=== PATIENT | female | born 1955 | race Caucasian/White ===

== ENCOUNTER 2019-08-05 06:11 | Inpatient (IN) | payer MEDICARE ==
[2019-07-27 11:22] LABS: BASOPHILS % (AUTO) 0.3 % (0-1); EOSINOPHILS # (AUTO) 0.4 X10'3 (0-0.9); EOSINOPHILS % (AUTO) 4.3 % (0-6); LYMPHOCYTES # (AUTO) 1.4 X10'3 (1.1-4.8); MEAN CORPUSCULAR HEMOGLOBIN 29.1 PG (27.0-31.0); MEAN CORPUSCULAR HGB CONC 32.7 g/dL (33.0-36.5); MEAN CORPUSCULAR VOLUME 89.1 FL (78-98); MEAN PLATELET VOLUME 7.8 FL (7.4-10.4); MONOCYTES # (AUTO) 0.9 X10'3 (0-0.9); MONOCYTES % (AUTO) 10.4 % (2-12); NEUTROPHILS # (AUTO) 5.8 X10'3 (1.8-7.7); PRE OP HEMATOCRIT 40.8 % (35.0-45.0); PRE OP HEMOGLOBIN 13.3 g/dL (12.0-16.0); PRE OP PLATELET COUNT 288 X10'3 (140-440); RED BLOOD COUNT 4.58 X10'6 (4.20-5.60); RED CELL DISTRIBUTION WIDTH 16.6 % (11.5-14.5)
[2019-07-27 11:34] LABS: PRE OP INR 1.1 INR; PRE OP PROTIME 10.9 SECONDS (9.0-12.0)
[2019-07-27 11:46] LABS: ALBUMIN/GLOBULIN RATIO 0.9 (1.1-1.5); ALKALINE PHOSPHATASE 78 IU/L (46-116); BLOOD UREA NITROGEN 16 MG/DL (7-18); BUN/CREATININE RATIO 15.2 (6.6-38.0); CALCIUM 9.7 MG/DL (8.5-10.1); CHLORIDE 104 MMOL/L (99-107); CREATININE 1.05 MG/DL (0.40-0.90); PRE OP ALT 22 U/L (30-65); PRE OP ANION GAP 6 (8-16); PRE OP AST 28 U/L (10-37); PRE OP BILIRUB, TOTAL 0.5 MG/DL (0.0-1.0); PRE OP GLUCOSE 107 MG/DL (70-104); PRE OP POTASSIUM 4.4 MMOL/L (3.4-5.1); PRE OP SODIUM 142 MMOL/L (135-145); TOTAL CARBON DIOXIDE 31.6 MMOL/L (24-32); TOTAL PROTEIN 8.6 G/DL (6.4-8.2); eGFR 52 ML/MIN
[~2019-08-05] VITALS: Ht 157.5 cm; Wt 172.4 kg
[~2019-08-05 06:11] MED LIST: ASPI-1264 PO; ATOR10TA87 PO; BIOT5000 PO; CETI10TA18 PO; CHOL400T57 PO; CINN500C2 PO; CRAN450T4 PO; DULO-31 PO; FURO40TA4 PO; GABA-338 PO; GABA600T13 PO; GINGKO PO; LACT1CAP65 PO; LEVO100T46 PO; LEVO200T43 PO; MAGN400C PO; MULT-1085 PO; NOR5T PO; NORMAL SALINE IV ONE; OMEG1CAP54 PO; POTA20TA19 PO; ROPI0.252 PO; TRANEXAMIC ACID IV ONE; TRAZ-91 PO; TURM500C4 PO; [UNRECOGNIZED DRUG - CODE] PO; ceFAZolin 1,000 MG/D5W 50ML IVPB Premixed bag IV ONE; ceFAZolin 2gm in dextrose, iso 50 ML IV ONE; famotidine 20mg tablet PO ONE; ringers solution, lacted 1,000 ML IV SCH; vancomycin 1,500 MG in NS 500ml IV soln IV ONE
[2019-08-05 06:35] VITALS: BP 121/58
--- NOTE | 2019-08-05 09:30 | NUR ---
UNABLE TO START IV, PIC LINE NURSE CALLED USED ULTRASOUND, PLACED #20 LEFT FOREARM.
--- NOTE | 2019-08-05 10:10 | NUR ---
PATIENT'S SURGERY CANCELED BECAUSE OR TABLE ONLY APPROVED UP TO 350LBS. PT WILL BE RESCHEDULED WHEN WE GET LARGER OR TABLE OR PT LOSES WEIGHT. PT AWARE. HOME WITH SON. IV DCD.
== END 2019-08-05 10:10 | disposition home or self-care (01) | DRG 558 ==
LOC: PAS IN 06:11 → EDSTATUS 08:30
PROVIDERS: ADMIT Orthopaedic Surgery; ATTEND Orthopaedic Surgery
DX: M75.41 Impingement syndrome of right shoulder (principal); Z68.44 Body mass index [BMI] 60.0-69.9, adult; M19.011 Primary osteoarthritis, right shoulder; M25.511 Pain in right shoulder; Z96.653 Presence of artificial knee joint, bilateral; F32.9 Major depressive disorder, single episode, unspecified; I10 Essential (primary) hypertension; E78.5 Hyperlipidemia, unspecified; M79.7 Fibromyalgia; G47.30 Sleep apnea, unspecified; E03.9 Hypothyroidism, unspecified; E66.01 Morbid (severe) obesity due to excess calories; Z88.1 Allergy status to other antibiotic agents; Z88.0 Allergy status to penicillin; Z88.2 Allergy status to sulfonamides; Z98.1 Arthrodesis status; Z90.49 Acquired absence of other specified parts of digestive tract; Z90.710 Acquired absence of both cervix and uterus
CPT/HCPCS: 36415; 71046; 76937; 80053; 82948; 84443; 85025; 85610; 85730; 87081; 87635; J0690; J3370; J7040; J7120

== ENCOUNTER 2021-01-21 10:50 | Outpatient (CLI) | payer MEDICARE ==
[~2021-01-21 10:50] MED LIST changes: -CETI10TA18 PO; +CETI10TA19 PO; +CHOL100046 PO; -CHOL400T57 PO; -GINGKO PO; +GINK120C PO; -NORMAL SALINE IV ONE; +POTA-207 PO; -POTA20TA19 PO; -TRANEXAMIC ACID IV ONE; -ceFAZolin 1,000 MG/D5W 50ML IVPB Premixed bag IV ONE; -ceFAZolin 2gm in dextrose, iso 50 ML IV ONE; -famotidine 20mg tablet PO ONE; -ringers solution, lacted 1,000 ML IV SCH; -vancomycin 1,500 MG in NS 500ml IV soln IV ONE
[2021-01-21] MEDS ORDERED: BUPR75TA8 PO (11:33)
[2021-01-21] MEDS ORDERED: FOCUS FACTOR PO (11:35)
[2021-01-21] MEDS ORDERED: INUL2TAB5 PO (11:35)
[2021-01-21] MEDS ORDERED: CALC-336 PO (11:35)
[2021-01-21] MEDS ORDERED: FLUT15.87 (11:37)
[2021-01-21 12:37] LABS: ALBUMIN 3.4 G/DL (3.4-5.0); ALBUMIN/GLOBULIN RATIO 0.8 (1.1-1.5); ALKALINE PHOSPHATASE 66 IU/L (46-116); BLOOD UREA NITROGEN 16 MG/DL (7-18); BUN/CREATININE RATIO 14.8 (6.6-38.0); CALCIUM 9.2 MG/DL (8.5-10.1); CHLORIDE 106 MMOL/L (99-107); CREATININE 1.08 MG/DL (0.40-0.90); PRE OP ALT 16 U/L (30-65); PRE OP ANION GAP 12 (8-16); PRE OP AST 22 U/L (10-37); PRE OP BILIRUB, TOTAL 0.4 MG/DL (0.0-1.0); PRE OP GLUCOSE 84 MG/DL (70-104); PRE OP SODIUM 144 MMOL/L (135-145); TOTAL CARBON DIOXIDE 25.6 MMOL/L (24-32); TOTAL PROTEIN 7.9 G/DL (6.4-8.2); eGFR 51 ML/MIN
== END 2021-01-21 23:59 | disposition home or self-care (01) ==
LOC: PRE-OP 10:50 → EDSTATUS 01-29 07:30
PROVIDERS: ATTEND Orthopaedic Surgery
DX: Z01.812 Encounter for preprocedural laboratory examination (principal); M75.121 Complete rotator cuff tear or rupture of right shoulder, not specified as traumatic; M25.512 Pain in left shoulder; M19.012 Primary osteoarthritis, left shoulder; M75.122 Complete rotator cuff tear or rupture of left shoulder, not specified as traumatic; Z20.822 Contact with and (suspected) exposure to COVID-19
CPT/HCPCS: 36415; 71046; 80053; 84443; 87081; U0003; U0005

== ENCOUNTER 2021-08-05 10:00 | Inpatient (IN) | payer MEDICARE ==
[~2021-08-05] VITALS: Ht 157.5 cm; Wt 174.9 kg
[~2021-08-05 10:00] MED LIST changes: -BIOT5000 PO; +BUPR75TA8 PO; +CALC-336 PO; +FLUT15.87; +FOCUS FACTOR PO; -GINK120C PO; +INUL2TAB5 PO; -LACT1CAP65 PO; -MULT-1085 PO; -[UNRECOGNIZED DRUG - CODE] PO
[2021-08-26 10:45] LABS: BASOPHILS # (AUTO) 0.1 X10'3 (0-0.2); BASOPHILS % (AUTO) 0.7 % (0-1); EOSINOPHILS # (AUTO) 0.3 X10'3 (0-0.9); EOSINOPHILS % (AUTO) 3.3 % (0-6); LYMPHOCYTES # (AUTO) 1.5 X10'3 (1.1-4.8); LYMPHOCYTES % (AUTO) 19.1 % (21-51); MEAN CORPUSCULAR HEMOGLOBIN 28.2 PG (27.0-31.0); MEAN CORPUSCULAR VOLUME 85.4 FL (78-98); MEAN PLATELET VOLUME 7.7 FL (7.4-10.4); MONOCYTES # (AUTO) 0.8 X10'3 (0-0.9); MONOCYTES % (AUTO) 9.8 % (2-12); NEUTROPHILS # (AUTO) 5.4 X10'3 (1.8-7.7); NEUTROPHILS % (AUTO) 67.1 % (42-75); PRE OP HEMATOCRIT 39.1 % (35.0-45.0); PRE OP HEMOGLOBIN 12.9 g/dL (12.0-16.0); PRE OP PLATELET COUNT 277 X10'3 (140-440); RED BLOOD COUNT 4.58 X10'6 (4.20-5.60); RED CELL DISTRIBUTION WIDTH 17.5 % (11.5-14.5)
[2021-08-26] MEDS ORDERED: CRAN500C4 PO (10:46)
[2021-08-26] MEDS ORDERED: MULT-1085 PO (10:46)
[2021-08-26] MEDS ORDERED: L GA1CAP PO (10:46)
[2021-08-26 11:06] LABS: ALKALINE PHOSPHATASE 61 IU/L (46-116); BLOOD UREA NITROGEN 18 MG/DL (7-18); BUN/CREATININE RATIO 16.5 (6.6-38.0); CALCIUM 9.5 MG/DL (8.5-10.1); CHLORIDE 103 MMOL/L (99-107); CREATININE 1.09 MG/DL (0.40-0.90); PRE OP ALT 24 U/L (30-65); PRE OP ANION GAP 8 (8-16); PRE OP AST 19 U/L (10-37); PRE OP BILIRUB, TOTAL 0.4 MG/DL (0.0-1.0); PRE OP GLUCOSE 94 MG/DL (70-104); PRE OP POTASSIUM 4.3 MMOL/L (3.4-5.1); PRE OP SODIUM 141 MMOL/L (135-145); TOTAL CARBON DIOXIDE 29.9 MMOL/L (24-32); TOTAL PROTEIN 8.1 G/DL (6.4-8.2); eGFR 50 ML/MIN
[2021-09-03] MEDS ORDERED: ringers solution, lacted 1,000 ML IV SCH ×2 (05:00→10:50)
[2021-09-03] MEDS ORDERED: tranexamic acid 650mg tablet PO ONE (05:30)
[2021-09-03] MEDS ORDERED: vancomycin 1,500 MG in NS 300ml IV soln IV ONE (05:30)
[2021-09-03] MEDS ORDERED: famotidine 20mg tablet PO ONE (05:30)
[2021-09-03] MEDS ORDERED: ceFAZolin inj. 3,000 MG in dextrose 5%-water 100 ML IV ONE (05:30)
[2021-09-03 08:00] VITALS: BP 132/55
--- NOTE | 2021-09-03 10:00 | NUR ---
UNABLE TO PLACE SCD STOCKINGS ON PT DUE TO OBESITY. Addendum: 09/03/21 at 1204 by Lynda Ballard RN, RN Amended: Links added.
[2021-09-03] MEDS ORDERED: hydrALAZINE 20mg/ml inj. IV PRN (10:50)
[2021-09-03] MEDS ORDERED: morphine 4 MG/ML inj SYRINge IV PRN (10:50)
[2021-09-03] MEDS ORDERED: ondansetron/PF 4mg/2ml inj IV PRN ×2 (10:50→16:05)
[2021-09-03] MEDS ORDERED: ROPIVAcaine 0.2% (10 MG/5 ML) BOLUS INJECTION INTERSCALE PRN (10:50)
[2021-09-03] MEDS ORDERED: labetalol 20mg/4ml (5mg/ml) syringe IV PRN (10:50)
[2021-09-03] MEDS ORDERED: morphine 2 MG/ML inj. syringe IV PRN (10:50)
[2021-09-03] MEDS ORDERED: fentaNYL/PF 50MCG/1 ML 2ML syringe IV PRN ×2 (10:50)
[2021-09-03] MEDS ORDERED: ROPIVAcaine 0.2%/PF PUMP/bolus 545 ML INTERSCALE SCH (11:30)
--- NOTE | 2021-09-03 12:03 | NUR ---
LEFT RADIAL PULSE PALPATED AND MARKED WITH A "X". Addendum: 09/03/21 at 1204 by Lynda Ballard RN RN Amended: Links added.
--- NOTE | 2021-09-03 12:06 | NUR ---
PT'S SISTER MONIQUE VALDEZ [phone]. Addendum: 09/03/21 at 1211 by Lynda Ballard RN RN Amended: Links added.
--- NOTE | 2021-09-03 12:07 | NUR ---
PT REQUESTING FOR REHAB. Addendum: 09/03/21 at 1211 by Lynda Ballard RN RN Amended: Links added.
[2021-09-03] MEDS ORDERED: sevoflurane 250ml liquid IH ONE (13:30)
[2021-09-03] MEDS ORDERED: acetaminophen 1000 MG/100ml vial IV ONE (13:30)
[2021-09-03] MEDS ORDERED: fentaNYL/PF 50MCG/1 ML 2ML syringe ONE (13:30)
[2021-09-03] MEDS ORDERED: propofol 10mg/ml 20ml vial IV ONE (13:30)
[2021-09-03] MEDS ORDERED: ondansetron/PF 4mg/2ml inj ONE (13:31)
[2021-09-03] MEDS ORDERED: succinylcholine 20mg/ml inj IV ONE (13:31)
[2021-09-03] MEDS ORDERED: LIDOcaine 1%/PF 5ML 10 MG/ML VIAL ONE (13:31)
[2021-09-03] MEDS ORDERED: midazolam 1 mg/ML 2ml injection ONE (13:31)
[2021-09-03] MEDS ORDERED: propofol inj 20 ML IV ONE (13:31)
[2021-09-03] MEDS ORDERED: ROPIVAcaine 0.5% (5mg/ml) 30ml vial ONE ×2 (13:32→14:42)
[2021-09-03] MEDS ORDERED: dexamethasone sod phosphate 4mg/ml inj. ONE (14:22)
[2021-09-03] MEDS ORDERED: ePHEDrine 50MG/ML INJ. ONE (14:27)
[2021-09-03] MEDS ORDERED: ketorolac trometh. 30mg/ml inj. ONE (14:42)
[2021-09-03] MEDS ORDERED: HYDROmorphone 1 mg/ml syringe IV PRN (16:05)
[2021-09-03] MEDS ORDERED: bisacodyl 10mg suppository rectal RC PRN (16:05)
[2021-09-03] MEDS ORDERED: acetaminophen 325mg tablet PO PRN (16:05)
[2021-09-03] MEDS ORDERED: non-formulary drug (Cranberry Extract (Cranberry) 1 CAP) PO SCH (16:05)
[2021-09-03] MEDS ORDERED: HYDROmorphone inj. 0.5 MG/0.5 ML DISP.SYRIN IV PRN (16:05)
[2021-09-03] MEDS ORDERED: diphenhydrAMINE 25mg capsule PO PRN ×2 (16:05)
[2021-09-03] MEDS ORDERED: oxyCODONE IR 5mg (immed. release) tablet PO PRN ×2 (16:05)
[2021-09-03] MEDS ORDERED: magnesium hydroxide 30ml (MOM) UD suspension PO PRN (16:05)
[2021-09-03] MEDS ORDERED: naloxone 0.4 mg/ml inj IV PRN (16:05)
[2021-09-03 16:10] VITALS: BP 116/65
--- NOTE | 2021-09-03 16:10 | NUR ---
PT ARRIVED TO VIA BED ACCOMPANIED BY DR MATA-ANESTHESIA REPORT GIVEN, PT WAKING UP, VSS, WRAP AND ICE PACK TO LEFT SHOULDER-+PULSE AND PINK FINGERS, DRSG-CDI, SCDS NOT ON D/T PT SIZE, PT HAS DEPENDS IN PLACE, EXTENDED PIV TO RIGHT FA-LR RUNNING AT 100ML/HR, DENIES PAIN, ON-Q CATHETER PRESENT.
[2021-09-03 16:20] VITALS: BP 128/69
[2021-09-03 16:30] VITALS: BP 129/68
[2021-09-03 16:40] VITALS: BP 125/66
[2021-09-03 16:50] VITALS: BP 121/67
--- NOTE | 2021-09-03 17:00 | NUR ---
PT AWAKE, VSS ON 3LTRS O2 USING I.S. APPROPRIATELY, HAS CPAP FROM HOME WITH PT, NO CHANGES IN DRSG OR CSM, ON-Q ATTACHED AND RUNNING AT 2ML/HR, PT EDUCATED ON USE, LEFT SHOULDER STILL NUMB-NO PAIN, XRAY DONE, REPORT CALLED TO LUDA GRACE-ALL QUESTIONS ANSWERED, PT TAKEN WITH ALL BELONGINGS TO ROOM 4023A BY LESLY MCKENZIE
--- NOTE | 2021-09-03 18:15 | NUR ---
Patient in room ORTHO 4023. I have received report from Mariajose GRACE and had the opportunity to ask questions and assume patient care. Addendum: 09/03/21 at 1906 by Delia Dee RN Amended: Links added.
--- NOTE | 2021-09-03 18:45 | NUR ---
Problems reprioritized. Patient report given, questions answered & plan of care reviewed with LESLY Lin.
[2021-09-03] MEDS ORDERED: vancomycin/NS 1 GM ADD-VANTAGE 250 ML IV SCH (20:00)
[2021-09-03] MEDS ORDERED: HYDROcodone/acetaminophen 5mg/325mg tablet PO PRN (20:05)
[2021-09-03] MEDS ORDERED: HYDROcodone/acetaminophen 10/325mg tab PO PRN ×2 (20:05)
--- NOTE | 2021-09-03 20:30 | NUR ---
Pt. laying in bed with A & O x 4, denies c/o od pain to left shoulder. Left shoulder with drsg CDI extremity in the sling at this time with cook wrap and ice pack in place, pt. able to move fingers freely and sensation present on palpation. Call light within reach and bed in low position. Wick in palce draining into the canister. Addendum: 09/04/21 at 0624 by Delia Dee RN Amended: Links added.
[2021-09-03] MEDS ORDERED: sennosides 8.6mg tablet PO SCH (21:00)
[2021-09-03] MEDS ORDERED: traZODone 150mg tablet PO SCH (21:00)
[2021-09-03] MEDS ORDERED: ROPINIRole 1mg tablet PO SCH (21:00)
[2021-09-03] MEDS ORDERED: cetirizine 10mg tablet PO SCH (21:00)
[2021-09-03] MEDS ORDERED: gabapentin 300mg capsule PO SCH (21:00)
[2021-09-03] MEDS: acetaminophen 325mg tablet PO SCH (22:07)
[2021-09-03] MEDS: potassium cl 20mEq in 1/2 NS 1,000 ML IV SCH (23:49)
[2021-09-04] MEDS: potassium cl 20mEq in 1/2 NS 1,000 ML IV SCH ×2 (00:05→12:05)
[2021-09-04 04:00] VITALS: BP 137/62
[2021-09-04] MEDS: acetaminophen 325mg tablet PO SCH ×2 (04:29→07:58)
[2021-09-04] MEDS ORDERED: levoTHYROXINE 75mcg tablet PO SCH (07:00)
[2021-09-04] MEDS: ceFAZolin/D5W- 1GM premix 50 ML IV SCH ×2 (07:51)
[2021-09-04 08:00] VITALS: BP 109/55
[2021-09-04] MEDS ORDERED: magnesium oxide 400mg tablet PO SCH (08:00)
[2021-09-04] MEDS ORDERED: gabapentin 400mg capsule PO SCH (08:00)
[2021-09-04] MEDS ORDERED: B BIFIDUM PO SCH (08:00)
[2021-09-04] MEDS ORDERED: CINNAMON BARK PO SCH (08:00)
[2021-09-04] MEDS ORDERED: calcium carbonate 500mg chew tablet PO SCH (08:00)
[2021-09-04] MEDS ORDERED: duloxetine 30mg CAPSULE.DR PO SCH (08:00)
[2021-09-04] MEDS ORDERED: buPROPion 75mg tablet PO SCH (08:00)
[2021-09-04] MEDS ORDERED: furosemide 40mg tablet PO SCH (08:00)
[2021-09-04] MEDS ORDERED: [UNRECOGNIZED DRUG - OTHER] PO SCH (08:00)
[2021-09-04] MEDS ORDERED: non-formulary drug (Turmeric/Turmeric Root Extract (Turmeric 500 mg Capsule) 1 CAP) PO SCH (08:00)
[2021-09-04] MEDS ORDERED: multivitamins, therapeutics tablet PO SCH (08:00)
[2021-09-04] MEDS ORDERED: GASSERI PO SCH (08:00)
[2021-09-04] MEDS ORDERED: atorvastatin 10mg tablet PO SCH (08:00)
[2021-09-04] MEDS ORDERED: INULIN PO SCH (08:00)
[2021-09-04] MEDS ORDERED: B LONGUM PO SCH (08:00)
[2021-09-04] MEDS ORDERED: FOCUS FACTOR PO SCH (08:00)
[2021-09-04] MEDS ORDERED: fluticasone nasal spray 16GM bottle NS SCH (08:00)
[2021-09-04] MEDS ORDERED: potassium Cl 20 mEq SR tablet PO SCH (08:00)
[2021-09-04] MEDS ORDERED: amLODIPine 5mg tablet PO SCH (08:00)
[2021-09-04] MEDS ORDERED: aspirin 325mg tablet PO SCH (08:30)
[2021-09-04 10:00] VITALS: BP 109/42
[2021-09-04 12:00] VITALS: BP 109/42
--- NOTE | 2021-09-04 12:00 | NUR ---
Problems reprioritized. Patient report given, questions answered & plan of care reviewed with Louise GRACE. Addendum: 09/04/21 at 1304 by Delia Dee RN Amended: Links added.
[2021-09-04 14:00] VITALS: BP 145/60
[2021-09-05] MEDS ORDERED: acetaminophen 325mg tablet PO PRN (16:05)
[2021-09-07] MEDS ORDERED: levoTHYROXINE 100mcg tablet PO SCH (07:00)
== END 2021-09-04 16:05 | DRG 483 ==
LOC: PAS IN 09-03 07:42 → ORTHO 4S 09-03 18:00
PROVIDERS: ADMIT Orthopaedic Surgery; ATTEND Orthopaedic Surgery
PROC: 0LS40ZZ Reposition Left Upper Arm Tendon, Open Approach (ICD-10-PCS; 2021-09-03)
PROC: 3E0T3BZ Introduction of Anesthetic Agent into Peripheral Nerves and Plexi, Percutaneous Approach (ICD-10-PCS; 2021-09-03)
PROC: 3E0T33Z Introduction of Anti-inflammatory into Peripheral Nerves and Plexi, Percutaneous Approach (ICD-10-PCS; 2021-09-03)
PROC: 0RRK00Z Replacement of Left Shoulder Joint with Reverse Ball and Socket Synthetic Substitute, Open Approach (ICD-10-PCS; principal; 2021-09-03 13:30)
DX: M19.012 Primary osteoarthritis, left shoulder (principal); Z68.45 Body mass index [BMI] 70 or greater, adult; M75.122 Complete rotator cuff tear or rupture of left shoulder, not specified as traumatic; E66.01 Morbid (severe) obesity due to excess calories; Z79.899 Other long term (current) drug therapy
CPT/HCPCS: 36410; 36415; 73020; 76937; 80053; 82948; 84443; 85025; 87081; 93005; 97116; 97161; 97530; A4333; A4615; A4618; A6258; A7000; C1751; C1776; G0378; J0131; J0330; J0690; J1100; J1885; J2250; J2405; J2704; J2795; J3010; J3370; J3480; J3490; J7040; J7060; J7120

== ENCOUNTER 2021-10-06 10:59 | Emergency (ER) | payer MEDICARE ==
[~2021-10-06] VITALS: Ht 157.5 cm; Wt 178.0 kg
[~2021-10-06 10:59] MED LIST changes: +CRAN500C4 PO; +L GA1CAP PO; +MULT-1085 PO
[2021-10-06] MEDS ORDERED: clindamycin 600mg/D5W 50ml 50 ML IV ONE (11:15)
[2021-10-06 11:19] VITALS: BP 136/71
[2021-10-06 11:50] LABS: BASOPHILS % (AUTO) 0.5 % (0-1); EOSINOPHILS # (AUTO) 0.4 X10'3 (0-0.9); HEMOGLOBIN 10.7 g/dl (12.0-16.0); LYMPHOCYTES # (AUTO) 1.5 X10'3 (1.1-4.8); LYMPHOCYTES % (AUTO) 19.7 % (21-51); MEAN CORPUSCULAR HEMOGLOBIN 28.3 PG (27.0-31.0); MEAN CORPUSCULAR HGB CONC 33.4 g/dL (33.0-36.5); MEAN CORPUSCULAR VOLUME 84.8 FL (78-98); MEAN PLATELET VOLUME 7.4 FL (7.4-10.4); MONOCYTES # (AUTO) 0.8 X10'3 (0-0.9); MONOCYTES % (AUTO) 10.9 % (2-12); NEUTROPHILS # (AUTO) 4.7 X10'3 (1.8-7.7); NEUTROPHILS % (AUTO) 63.9 % (42-75); PLATELET COUNT 236 X10'3 (140-440); RED BLOOD COUNT 3.78 X10'6 (4.20-5.60); RED CELL DISTRIBUTION WIDTH 17.1 % (11.5-14.5); WHITE BLOOD COUNT 7.4 X10'3 (4.5-11.0)
[2021-10-06 11:58] LABS: ALBUMIN 3.3 G/DL (3.4-5.0); ANION GAP 6 (8-16); BLOOD UREA NITROGEN 15 MG/DL (7-18); BUN/CREATININE RATIO 13.8 (6.6-38.0); CALCIUM 9.1 MG/DL (8.5-10.1); CHLORIDE 102 MMOL/L (99-107); CREATININE 1.09 MG/DL (0.40-0.90); GLUCOSE 91 MG/DL (70-104); POTASSIUM 4.2 MMOL/L (3.5-5.1); SODIUM 142 MMOL/L (135-145); TOTAL CARBON DIOXIDE 33.8 MMOL/L (24-32); eGFR 50 ML/MIN
[2021-10-06] MEDS ORDERED: CLIN150C2 PO (13:33)
== END 2021-10-06 16:29 | disposition home or self-care (01) ==
LOC: ER 11:00
DX: L03.115 Cellulitis of right lower limb (principal); E78.00 Pure hypercholesterolemia, unspecified; I10 Essential (primary) hypertension; Z90.49 Acquired absence of other specified parts of digestive tract; Z90.710 Acquired absence of both cervix and uterus; Z88.8 Allergy status to other drugs, medicaments and biological substances; Z88.1 Allergy status to other antibiotic agents; Z88.2 Allergy status to sulfonamides; Z79.82 Long term (current) use of aspirin; Z79.899 Other long term (current) drug therapy; Z79.2 Long term (current) use of antibiotics
CPT/HCPCS: 36415; 80048; 85025; 96374; 99283; J3490